=== PATIENT | female | born 1940 | race Caucasian/White ===

== ENCOUNTER 2017-04-06 14:17 | Inpatient (IN) | payer MEDICARE ==
[2017-04-06] MEDS ORDERED: Ondansetron ODT 4 MG TAB PO PRN (15:21)
[2017-04-06] MEDS ORDERED: FLU VACC TS2017-18 (>65YR) 0.5 ML SYRINGE IM ONE (16:30)
[2017-04-06] MEDS ORDERED: METHOCARBAMOL 500 MG PO PRN (17:00)
[2017-04-06] MEDS: Acetaminophen/Codeine 30-300mg Tablet PO PRN (17:37)
[2017-04-06] MEDS: Acetaminophen 325 MG TAB PO PRN (20:45)
[2017-04-06] MEDS: Ferrous Sulfate 325 MG TAB PO SCH (20:45)
[2017-04-06] MEDS: Docusate 100 MG CAP PO SCH (20:45)
[2017-04-06] MEDS: Simvastatin 40 MG TAB PO SCH (20:45)
[2017-04-06] MEDS: Cefuroxime Axetil 250 MG TAB PO SCH (20:46)
[2017-04-07] MEDS: Acetaminophen/Codeine 30-300mg Tablet PO PRN ×3 (04:46→19:56)
[2017-04-07] MEDS: Ferrous Sulfate 325 MG TAB PO SCH ×2 (08:45→20:18)
[2017-04-07] MEDS: Magnesium Oxide 400 MG TAB PO SCH (08:46)
[2017-04-07] MEDS: Docusate 100 MG CAP PO SCH ×2 (08:46→20:17)
[2017-04-07] MEDS: Enoxaparin Sodium 40 MG/0.4 ML SYRINGE SC SCH (08:46)
[2017-04-07] MEDS: Multivit, Therapeutic 1 TAB PO SCH (08:46)
[2017-04-07] MEDS: Ascorbic Acid 500 mg Chewable Tablet PO SCH (08:46)
[2017-04-07] MEDS: Levothyroxine Sodium 88 MCG TAB PO SCH (08:46)
[2017-04-07] MEDS: Cefuroxime Axetil 250 MG TAB PO SCH ×2 (08:47→20:19)
[2017-04-07] MEDS ORDERED: Non-Formulary Item 1 EACH (Citalopram Hydrobromide [Celexa] 40 MG) PO SCH (09:00)
[2017-04-07] MEDS ORDERED: GLYCOPYRROLATE 1 MG PO SCH (09:00)
[2017-04-07] MEDS: Citalopram 20 MG TAB PO SCH (09:18)
--- NOTE | 2017-04-07 15:06 | HP ---
DATE OF ADMISISON: 04/06/2017 ATTENDING: Dr. Dr. Ramirez. PRIMARY CARE PHYSICIAN: Dr. Catherine from [place]. Orthopedic, Dr. Tomlinson from [place]. CHIEF COMPLAINT: Skilled rehabilitation in [facility], [facility]. HISTORY OF PRESENT ILLNESS: Ms. Soriano is a very pleasant 76-year-old female, a chronic smoker with history of hypertension, hyperlipidemia , hypothyroidism, who while out of town, fell on a curb due to imbalance. She was found to have a right tibial fracture at the nearby emergency department and a splint was placed. She was then transferred to [facility] on 04/03/2017, and was seen by Dr. Tomlinson for orthopedic management of the right tibial fracture. The patient underwent intramedullary nailing of the right tibial shaft using a 10 x 315 mm Synthes, tibial nail with a 10 mm proximal end cap. One screw was placed medial to the lateral in the proximal dynamic hole and two screws were placed medial to the lateral in the distal holes in the distal fragment. Procedure was done by Dr. Rishi Tomlinson on 04/04/2017 at [facility] in [place], [place]. Patient 's postoperative course was unremarkable. Her latest hemoglobin was 11.6 on 11/2016 prior to discharge. She is currently on [place] for pain and with p.r.n. use of Robaxin for muscle relaxant. Patient reports adequately controlled pain with current pain management. She is using nicotine patch while in the hospital and is agreeable to continue using the patch while in the skilled rehabilitation. She is currently nonweightbearing per ortho recommendations. She is on Lovenox for DVT prophylaxis that we will continue for at least 2 weeks or further orders from the Orthopedics. She will follow up with Dr. Tomlinson on 04/17 at 12:45 in [facility]. When seen, patient was resting comfortably in bed. Family consisting of her son and her daughter, who were from out of the state visiting the patient. The patient reports that she stays at home by herself and might be needing home health when discharge if indicated. No other issues at this point except for irregular bowel movements and constipation lately. PAST MEDICAL HISTORY: Hypertension, hypothyroidism, hyperlipidemia, chronic smoker, depression, anxiety, and irritable bowel syndrome. PAST SURGICAL HISTORY: Right ankle surgery as per HPI and tubal ligation. ALLERGIES: To SULFA. MEDICATIONS: Acetaminophen with codeine #3 one tab p.o. q.4 hours p.r.n., citalopram 40 mg p.o. daily, Cefuroxime Axetil 500 mg p.o. b.i.d. for UTI to complete 4 more days, cholecalciferol 1000 mg p.o. daily, Docusate 100 mg p.o. b.i.d., Lovenox 40 mg subcu daily, ferrous sulfate 325 mg p.o. b.i.d., DuoNeb q. 2 hours p.r.n., levothyroxine 88 mcg p.o. q.a.m., magnesium oxide 400 mg p.o. daily, multivitamins 1 tab daily, nicotine patch 21 mg TD daily, pantoprazole 40 mg p.o. daily, simvastatin 40 mg p.o. at bedtime. FAMILY HISTORY: Positive for hypertension and heart disease. SOCIAL HISTORY: She smokes a pack of cigarettes per day for at least 40 years. She is a continuous smoker. She drinks 1-2 beers per day. No recreational drug use. She lives alone. She is independent in ADLs. REVIEW OF SYSTEMS: General: No fever, no chills, no fatigue or general weakness. HEENT: No acute visual changes or hearing changes. Respiratory: No shortness of breath, pain with breathing, sputum production, bloody sputum, or wheezing. Cardiac: No chest pain, no dyspnea on exertion, paroxysmal nocturnal dyspnea, or leg edema. Gastrointestinal: No nausea, vomiting, abdominal pain, diarrhea. Reports irregular bowel movements/constipation intermittently. No rectal bleeding. Genitourinary: No dysuria, hematuria, frequency, urgency. Currently on oral antibiotic for UTI. Musculoskeletal: Reports joint pain intermittently superimposed with postoperative pain, muscle and myalgia intermittently. Neurologic: No focal numbness, focal weakness, no tics, tremors or seizures. Psychiatric: Reports depressive symptoms/anxiety. No hallucinations. No suicidal thoughts, ideations or plans. PHYSICAL EXAMINATION: VITAL SIGNS: Blood pressure 141/63, temperature 98.1, pulse 71, respirations 20 , O2 sats 94% -97% at room air, weight 139 pounds, height 5 feet 3 inches. GENERAL: The patient is awake, alert, oriented x3, not in distress. HEENT: Normocephalic, atraumatic. PERRL, intact EOMI. Nonicteric sclera. Oral mucosa is moist. NECK: Supple. No LAD, no JVD, no bruit. CHEST: Normal excursion, clear to auscultation bilaterally. HEART: Regular rate and rhythm. Normal S1 and S2. No murmurs. ABDOMEN: Flat, soft, normoactive bowel sounds, nondistended, nontender. Negative CVA tenderness bilaterally. EXTREMITIES: Right lower extremity is mildly swollen and edematous in color. Multiple postop wounds both on the right lower ankle and below the right knee were noted. Palpable pulses bilaterally. She is able to move all the toes and fingers without difficulty. SKIN: As described postoperatively. Otherwise, no other rashes, no jaundice. A small open wound at posterior of the right knee, moist with minimal yellowish discharge, no surrounding erythema, no surrounding edema. Not warm to touch. NEUROLOGIC: Alert and oriented x3, no focal deficits. DTRs 2+. Gait abnormal secondary to postoperative condition. ASSESSMENT: 1. Physical deconditioning. 2. Right tibial fracture secondary to ground level fall, status post intramedullary nailing of the right tibial shaft, 04/04/2017, by Dr. Rishi Tomlinson. 3. Occasional myalgia. 4. Gait abnormality secondary to nonweightbearing status. 5. Small open wound , right posterior tibia. SECONDARY DIAGNOSES: 1. Hypertension. 2. Hyperlipidemia. 3. Hypothyroidism. 4. Depression and anxiety. 5. Chronic tobacco use. PLAN: 1. The patient is admitted to [facility] bed for skilled rehabilitation. PT, OT were consulted. Patient will remain nonweightbearing until further recommendations from ortho. We will continue home medications/ transfer medications as modified per list. We will add MiraLax as part of the constipation regimen. The patient to follow up with Ortho on 04/17/[address] Tomlinson in [place] as previously scheduled. [facility] staff to arrange transportation for this outpatient followup. 2. Gastrointestinal prophylaxis with PPI. Deep venous thrombosis prophylaxis with Lovenox. 3. Routine wound care per nursing. 4. Estimated length of stay 3-4 weeks. CODE STATUS: The patient reports DNR in the presence of her son and daughter who was present at the time of examination. Children concur with the patient's wishes. DISPOSITION: Home, may need possible home health and personal provider while recuperating. Discussed the above plans of care with the patient and the family. All their questions were answered to their satisfaction. BLU
[2017-04-07] MEDS: Nicotine 21 MG PATCH TD SCH (17:22)
[2017-04-07] MEDS: Cyclobenzaprine 10 MG TAB PO PRN (17:26)
[2017-04-07] MEDS: Polyethylene Glycol 3350 17 GM Packet PER TUBE SCH (20:17)
[2017-04-07] MEDS: Simvastatin 40 MG TAB PO SCH (20:22)
[2017-04-08] MEDS: Levothyroxine Sodium 88 MCG TAB PO SCH (07:42)
[2017-04-08] MEDS: Ascorbic Acid 500 mg Chewable Tablet PO SCH (08:32)
[2017-04-08] MEDS: Docusate 100 MG CAP PO SCH ×2 (08:33→20:22)
[2017-04-08] MEDS: Ferrous Sulfate 325 MG TAB PO SCH ×2 (08:33→20:22)
[2017-04-08] MEDS: Multivit, Therapeutic 1 TAB PO SCH (08:33)
[2017-04-08] MEDS: Citalopram 20 MG TAB PO SCH (08:33)
[2017-04-08] MEDS: Enoxaparin Sodium 40 MG/0.4 ML SYRINGE SC SCH (08:33)
[2017-04-08] MEDS: Magnesium Oxide 400 MG TAB PO SCH (08:33)
[2017-04-08] MEDS: Acetaminophen/Codeine 30-300mg Tablet PO PRN ×2 (08:34→20:22)
[2017-04-08] MEDS: Cefuroxime Axetil 250 MG TAB PO SCH ×2 (08:35→20:22)
[2017-04-08] MEDS: Nicotine 21 MG PATCH TD SCH (16:39)
[2017-04-08] MEDS: Acetaminophen 325 MG TAB PO PRN (16:39)
[2017-04-08] MEDS: Polyethylene Glycol 3350 17 GM Packet PER TUBE SCH (20:21)
[2017-04-08] MEDS: Simvastatin 40 MG TAB PO SCH (20:22)
[2017-04-09] MEDS: Levothyroxine Sodium 88 MCG TAB PO SCH (05:55)
[2017-04-09] MEDS: Acetaminophen 325 MG TAB PO PRN ×2 (05:58→14:01)
[2017-04-09] MEDS: Cyclobenzaprine 10 MG TAB PO PRN ×3 (05:58→20:19)
[2017-04-09] MEDS: Enoxaparin Sodium 40 MG/0.4 ML SYRINGE SC SCH (08:36)
[2017-04-09] MEDS: Docusate 100 MG CAP PO SCH ×2 (08:37→20:20)
[2017-04-09] MEDS: Acetaminophen/Codeine 30-300mg Tablet PO PRN ×2 (08:37→20:20)
[2017-04-09] MEDS: Multivit, Therapeutic 1 TAB PO SCH (08:37)
[2017-04-09] MEDS: Citalopram 20 MG TAB PO SCH (08:38)
[2017-04-09] MEDS: Cefuroxime Axetil 250 MG TAB PO SCH ×2 (08:38→20:19)
[2017-04-09] MEDS: Ascorbic Acid 500 mg Chewable Tablet PO SCH (08:38)
[2017-04-09] MEDS: Ferrous Sulfate 325 MG TAB PO SCH ×2 (08:39→20:20)
[2017-04-09] MEDS: Magnesium Oxide 400 MG TAB PO SCH (08:39)
[2017-04-09] MEDS: Nicotine 21 MG PATCH TD SCH (17:25)
[2017-04-09] MEDS: Simvastatin 40 MG TAB PO SCH (20:20)
[2017-04-09] MEDS: Polyethylene Glycol 3350 17 GM Packet PER TUBE SCH (20:20)
[2017-04-10] MEDS: Levothyroxine Sodium 88 MCG TAB PO SCH (06:12)
[2017-04-10] MEDS: Citalopram 20 MG TAB PO SCH (09:02)
[2017-04-10] MEDS: Ascorbic Acid 500 mg Chewable Tablet PO SCH (09:02)
[2017-04-10] MEDS: Cefuroxime Axetil 250 MG TAB PO SCH ×2 (09:02→20:24)
[2017-04-10] MEDS: Multivit, Therapeutic 1 TAB PO SCH (09:03)
[2017-04-10] MEDS: Ferrous Sulfate 325 MG TAB PO SCH ×2 (09:03→20:23)
[2017-04-10] MEDS: Magnesium Oxide 400 MG TAB PO SCH (09:03)
[2017-04-10] MEDS: Enoxaparin Sodium 40 MG/0.4 ML SYRINGE SC SCH (09:03)
[2017-04-10] MEDS: Docusate 100 MG CAP PO SCH ×2 (09:03→20:24)
[2017-04-10] MEDS: Acetaminophen/Codeine 30-300mg Tablet PO PRN ×2 (09:09→20:24)
[2017-04-10] MEDS: Nicotine 21 MG PATCH TD SCH (16:59)
[2017-04-10] MEDS: Cyclobenzaprine 10 MG TAB PO PRN (20:24)
[2017-04-10] MEDS: Simvastatin 40 MG TAB PO SCH (20:24)
[2017-04-10] MEDS: Polyethylene Glycol 3350 17 GM Packet PER TUBE SCH (20:24)
[2017-04-11] MEDS: Levothyroxine Sodium 88 MCG TAB PO SCH (05:58)
[2017-04-11] MEDS: Acetaminophen 325 MG TAB PO PRN (06:03)
[2017-04-11] MEDS: Cyclobenzaprine 10 MG TAB PO PRN ×2 (06:03→20:40)
[2017-04-11] MEDS: Ascorbic Acid 500 mg Chewable Tablet PO SCH (08:34)
[2017-04-11] MEDS: Enoxaparin Sodium 40 MG/0.4 ML SYRINGE SC SCH (08:34)
[2017-04-11] MEDS: Magnesium Oxide 400 MG TAB PO SCH (08:35)
[2017-04-11] MEDS: Citalopram 20 MG TAB PO SCH (08:35)
[2017-04-11] MEDS: Multivit, Therapeutic 1 TAB PO SCH (08:35)
[2017-04-11] MEDS: Ferrous Sulfate 325 MG TAB PO SCH ×2 (08:35→20:42)
[2017-04-11] MEDS: Docusate 100 MG CAP PO SCH ×2 (08:35→20:41)
[2017-04-11] MEDS: Acetaminophen/Codeine 30-300mg Tablet PO PRN ×2 (08:39→20:40)
[2017-04-11] MEDS: Nicotine 21 MG PATCH TD SCH (17:29)
[2017-04-11] MEDS: Polyethylene Glycol 3350 17 GM Packet PER TUBE SCH (20:43)
[2017-04-11] MEDS: Simvastatin 40 MG TAB PO SCH (20:43)
[2017-04-12] MEDS: Acetaminophen/Codeine 30-300mg Tablet PO PRN ×2 (04:58→20:42)
[2017-04-12] MEDS: Levothyroxine Sodium 88 MCG TAB PO SCH (05:03)
[2017-04-12] MEDS: Ascorbic Acid 500 mg Chewable Tablet PO SCH (09:15)
[2017-04-12] MEDS: Magnesium Oxide 400 MG TAB PO SCH (09:16)
[2017-04-12] MEDS: Ferrous Sulfate 325 MG TAB PO SCH ×2 (09:16→20:42)
[2017-04-12] MEDS: Multivit, Therapeutic 1 TAB PO SCH (09:16)
[2017-04-12] MEDS: Docusate 100 MG CAP PO SCH ×2 (09:16→20:42)
[2017-04-12] MEDS: Enoxaparin Sodium 40 MG/0.4 ML SYRINGE SC SCH (09:16)
[2017-04-12] MEDS: Citalopram 20 MG TAB PO SCH (09:16)
[2017-04-12] MEDS: Cyclobenzaprine 10 MG TAB PO PRN (16:45)
[2017-04-12] MEDS: Nicotine 21 MG PATCH TD SCH (17:07)
[2017-04-12] MEDS: Polyethylene Glycol 3350 17 GM Packet PER TUBE SCH (20:41)
[2017-04-12] MEDS: Simvastatin 40 MG TAB PO SCH (20:42)
[2017-04-13] MEDS: Levothyroxine Sodium 88 MCG TAB PO SCH (05:24)
[2017-04-13] MEDS: Enoxaparin Sodium 40 MG/0.4 ML SYRINGE SC SCH (09:19)
[2017-04-13] MEDS: Citalopram 20 MG TAB PO SCH (09:20)
[2017-04-13] MEDS: Magnesium Oxide 400 MG TAB PO SCH (09:21)
[2017-04-13] MEDS: Ascorbic Acid 500 mg Chewable Tablet PO SCH (09:21)
[2017-04-13] MEDS: Multivit, Therapeutic 1 TAB PO SCH (09:21)
[2017-04-13] MEDS: Docusate 100 MG CAP PO SCH ×2 (09:21→20:35)
[2017-04-13] MEDS: Ferrous Sulfate 325 MG TAB PO SCH ×2 (09:22→20:36)
[2017-04-13] MEDS: Acetaminophen/Codeine 30-300mg Tablet PO PRN ×2 (09:43→20:35)
[2017-04-13] MEDS: Cyclobenzaprine 10 MG TAB PO PRN ×2 (13:48→20:35)
[2017-04-13] MEDS ORDERED: Bisacodyl 10 MG SUPP PR PRN (17:16)
[2017-04-13] MEDS: Nicotine 21 MG PATCH TD SCH (17:23)
[2017-04-13] MEDS ORDERED: Fleet Enema 133 ML BOT PR SCH (17:30)
[2017-04-13] MEDS: Polyethylene Glycol 3350 17 GM Packet PER TUBE SCH (20:35)
[2017-04-13] MEDS: Simvastatin 40 MG TAB PO SCH (21:00)
[2017-04-14] MEDS: Acetaminophen/Codeine 30-300mg Tablet PO PRN ×2 (04:07→20:49)
[2017-04-14] MEDS: Levothyroxine Sodium 88 MCG TAB PO SCH (05:07)
[2017-04-14] MEDS: Magnesium Oxide 400 MG TAB PO SCH (08:33)
[2017-04-14] MEDS: Ferrous Sulfate 325 MG TAB PO SCH ×2 (08:33→20:51)
[2017-04-14] MEDS: Citalopram 20 MG TAB PO SCH (08:34)
[2017-04-14] MEDS: Enoxaparin Sodium 40 MG/0.4 ML SYRINGE SC SCH (08:34)
[2017-04-14] MEDS: Multivit, Therapeutic 1 TAB PO SCH (08:34)
[2017-04-14] MEDS: Docusate 100 MG CAP PO SCH ×2 (08:34→20:51)
[2017-04-14] MEDS: Ascorbic Acid 500 mg Chewable Tablet PO SCH (08:34)
[2017-04-14] MEDS: Polyethylene Glycol 3350 17 GM Packet PO PRN (08:38)
[2017-04-14] MEDS: Nicotine 21 MG PATCH TD SCH (17:26)
[2017-04-14] MEDS: Polyethylene Glycol 3350 17 GM Packet PER TUBE SCH (20:49)
[2017-04-14] MEDS: Simvastatin 40 MG TAB PO SCH (20:51)
[2017-04-15] MEDS: Acetaminophen/Codeine 30-300mg Tablet PO PRN ×3 (03:31→21:46)
[2017-04-15] MEDS: Cyclobenzaprine 10 MG TAB PO PRN (03:32)
[2017-04-15] MEDS: Levothyroxine Sodium 88 MCG TAB PO SCH (06:04)
[2017-04-15] MEDS: Ascorbic Acid 500 mg Chewable Tablet PO SCH (08:43)
[2017-04-15] MEDS: Citalopram 20 MG TAB PO SCH (08:43)
[2017-04-15] MEDS: Ferrous Sulfate 325 MG TAB PO SCH ×2 (08:43→20:37)
[2017-04-15] MEDS: Magnesium Oxide 400 MG TAB PO SCH (08:43)
[2017-04-15] MEDS: Multivit, Therapeutic 1 TAB PO SCH (08:43)
[2017-04-15] MEDS: Docusate 100 MG CAP PO SCH ×2 (08:43→20:37)
[2017-04-15] MEDS: Enoxaparin Sodium 40 MG/0.4 ML SYRINGE SC SCH (08:43)
[2017-04-15] MEDS: Polyethylene Glycol 3350 17 GM Packet PO PRN (08:46)
[2017-04-15] MEDS: Nicotine 21 MG PATCH TD SCH (17:38)
[2017-04-15] MEDS: Simvastatin 40 MG TAB PO SCH (20:37)
[2017-04-15] MEDS: Polyethylene Glycol 3350 17 GM Packet PER TUBE SCH (20:39)
[2017-04-16] MEDS: Levothyroxine Sodium 88 MCG TAB PO SCH (05:59)
[2017-04-16] MEDS: Cyclobenzaprine 10 MG TAB PO PRN (05:59)
[2017-04-16] MEDS: Enoxaparin Sodium 40 MG/0.4 ML SYRINGE SC SCH (09:18)
[2017-04-16] MEDS: Multivit, Therapeutic 1 TAB PO SCH (09:18)
[2017-04-16] MEDS: Ferrous Sulfate 325 MG TAB PO SCH ×2 (09:19→22:05)
[2017-04-16] MEDS: Magnesium Oxide 400 MG TAB PO SCH (09:19)
[2017-04-16] MEDS: Ascorbic Acid 500 mg Chewable Tablet PO SCH (09:20)
[2017-04-16] MEDS: Citalopram 20 MG TAB PO SCH (09:20)
[2017-04-16] MEDS: Docusate 100 MG CAP PO SCH ×2 (09:20→22:01)
[2017-04-16] MEDS: Acetaminophen/Codeine 30-300mg Tablet PO PRN ×2 (09:23→22:02)
[2017-04-16] MEDS: Polyethylene Glycol 3350 17 GM Packet PO PRN (09:26)
[2017-04-16] MEDS: Nicotine 21 MG PATCH TD SCH (16:20)
[2017-04-16] MEDS: Simvastatin 40 MG TAB PO SCH (22:04)
[2017-04-16] MEDS: Polyethylene Glycol 3350 17 GM Packet PER TUBE SCH (22:05)
[2017-04-17] MEDS: Levothyroxine Sodium 88 MCG TAB PO SCH (05:31)
[2017-04-17] MEDS: Citalopram 20 MG TAB PO SCH (08:25)
[2017-04-17] MEDS: Enoxaparin Sodium 40 MG/0.4 ML SYRINGE SC SCH (08:25)
[2017-04-17] MEDS: Docusate 100 MG CAP PO SCH ×2 (08:25→20:20)
[2017-04-17] MEDS: Ascorbic Acid 500 mg Chewable Tablet PO SCH (08:25)
[2017-04-17] MEDS: Multivit, Therapeutic 1 TAB PO SCH (08:26)
[2017-04-17] MEDS: Magnesium Oxide 400 MG TAB PO SCH (08:26)
[2017-04-17] MEDS: Ferrous Sulfate 325 MG TAB PO SCH ×2 (08:26→20:20)
[2017-04-17] MEDS: Acetaminophen/Codeine 30-300mg Tablet PO PRN ×2 (10:30→20:21)
[2017-04-17] MEDS: Nicotine 21 MG PATCH TD SCH (17:46)
[2017-04-17] MEDS: Simvastatin 40 MG TAB PO SCH (20:21)
[2017-04-17] MEDS: Cyclobenzaprine 10 MG TAB PO PRN (20:21)
[2017-04-17] MEDS: Polyethylene Glycol 3350 17 GM Packet PER TUBE SCH (20:22)
[2017-04-18] MEDS: Levothyroxine Sodium 88 MCG TAB PO SCH (05:40)
[2017-04-18] MEDS: Ascorbic Acid 500 mg Chewable Tablet PO SCH (08:43)
[2017-04-18] MEDS: Docusate 100 MG CAP PO SCH ×2 (08:43→20:39)
[2017-04-18] MEDS: Ferrous Sulfate 325 MG TAB PO SCH ×2 (08:43→20:37)
[2017-04-18] MEDS: Citalopram 20 MG TAB PO SCH (08:43)
[2017-04-18] MEDS: Multivit, Therapeutic 1 TAB PO SCH (08:43)
[2017-04-18] MEDS: Magnesium Oxide 400 MG TAB PO SCH (08:44)
[2017-04-18] MEDS: Enoxaparin Sodium 40 MG/0.4 ML SYRINGE SC SCH (08:44)
[2017-04-18] MEDS: Nicotine 21 MG PATCH TD SCH (17:08)
[2017-04-18] MEDS: Cyclobenzaprine 10 MG TAB PO PRN (20:37)
[2017-04-18] MEDS: Simvastatin 40 MG TAB PO SCH (20:37)
[2017-04-18] MEDS: Acetaminophen/Codeine 30-300mg Tablet PO PRN (20:37)
[2017-04-18] MEDS: Polyethylene Glycol 3350 17 GM Packet PER TUBE SCH (20:39)
[2017-04-19] MEDS: Levothyroxine Sodium 88 MCG TAB PO SCH (05:55)
[2017-04-19] MEDS: Magnesium Oxide 400 MG TAB PO SCH (08:53)
[2017-04-19] MEDS: Docusate 100 MG CAP PO SCH ×2 (08:53→20:54)
[2017-04-19] MEDS: Citalopram 20 MG TAB PO SCH (08:53)
[2017-04-19] MEDS: Ascorbic Acid 500 mg Chewable Tablet PO SCH (08:53)
[2017-04-19] MEDS: Multivit, Therapeutic 1 TAB PO SCH (08:53)
[2017-04-19] MEDS: Ferrous Sulfate 325 MG TAB PO SCH ×2 (08:53→20:51)
[2017-04-19] MEDS: Enoxaparin Sodium 40 MG/0.4 ML SYRINGE SC SCH (08:54)
[2017-04-19] MEDS: Nicotine 21 MG PATCH TD SCH ×2 (17:41→20:53)
[2017-04-19] MEDS: Simvastatin 40 MG TAB PO SCH (20:51)
[2017-04-19] MEDS: Cyclobenzaprine 10 MG TAB PO PRN (20:52)
[2017-04-19] MEDS: Acetaminophen/Codeine 30-300mg Tablet PO PRN (20:52)
[2017-04-19] MEDS: Polyethylene Glycol 3350 17 GM Packet PER TUBE SCH (20:54)
[2017-04-20] MEDS: Levothyroxine Sodium 88 MCG TAB PO SCH (05:52)
[2017-04-20] MEDS: Ascorbic Acid 500 mg Chewable Tablet PO SCH (08:41)
[2017-04-20] MEDS: Multivit, Therapeutic 1 TAB PO SCH (08:41)
[2017-04-20] MEDS: Docusate 100 MG CAP PO SCH ×2 (08:41→21:22)
[2017-04-20] MEDS: Citalopram 20 MG TAB PO SCH (08:41)
[2017-04-20] MEDS: Enoxaparin Sodium 40 MG/0.4 ML SYRINGE SC SCH (08:41)
[2017-04-20] MEDS: Magnesium Oxide 400 MG TAB PO SCH (08:41)
[2017-04-20] MEDS: Ferrous Sulfate 325 MG TAB PO SCH ×2 (08:43→21:22)
[2017-04-20] MEDS: Nicotine 21 MG PATCH TD SCH ×2 (17:10→21:21)
[2017-04-20] MEDS: Acetaminophen/Codeine 30-300mg Tablet PO PRN (21:21)
[2017-04-20] MEDS: Polyethylene Glycol 3350 17 GM Packet PER TUBE SCH (21:22)
[2017-04-20] MEDS: Simvastatin 40 MG TAB PO SCH (21:22)
[2017-04-21] MEDS: Levothyroxine Sodium 88 MCG TAB PO SCH (06:05)
[2017-04-21] MEDS: Ascorbic Acid 500 mg Chewable Tablet PO SCH (08:40)
[2017-04-21] MEDS: Docusate 100 MG CAP PO SCH ×2 (08:41→21:41)
[2017-04-21] MEDS: Enoxaparin Sodium 40 MG/0.4 ML SYRINGE SC SCH (08:41)
[2017-04-21] MEDS: Citalopram 20 MG TAB PO SCH (08:41)
[2017-04-21] MEDS: Ferrous Sulfate 325 MG TAB PO SCH ×2 (08:42→21:42)
[2017-04-21] MEDS: Multivit, Therapeutic 1 TAB PO SCH (08:42)
[2017-04-21] MEDS: Magnesium Oxide 400 MG TAB PO SCH (08:42)
[2017-04-21] MEDS: Acetaminophen/Codeine 30-300mg Tablet PO PRN ×2 (08:48→21:44)
[2017-04-21] MEDS: Nicotine 21 MG PATCH TD SCH ×2 (17:18→21:49)
[2017-04-21] MEDS: Polyethylene Glycol 3350 17 GM Packet PER TUBE SCH (21:42)
[2017-04-21] MEDS: Simvastatin 40 MG TAB PO SCH (21:42)
[2017-04-22] MEDS: Levothyroxine Sodium 88 MCG TAB PO SCH (05:11)
[2017-04-22] MEDS: Ascorbic Acid 500 mg Chewable Tablet PO SCH (08:46)
[2017-04-22] MEDS: Enoxaparin Sodium 40 MG/0.4 ML SYRINGE SC SCH (08:47)
[2017-04-22] MEDS: Ferrous Sulfate 325 MG TAB PO SCH ×2 (08:47→20:27)
[2017-04-22] MEDS: Citalopram 20 MG TAB PO SCH (08:47)
[2017-04-22] MEDS: Docusate 100 MG CAP PO SCH ×2 (08:47→20:29)
[2017-04-22] MEDS: Multivit, Therapeutic 1 TAB PO SCH (08:48)
[2017-04-22] MEDS: Magnesium Oxide 400 MG TAB PO SCH (08:48)
[2017-04-22] MEDS: Nicotine 21 MG PATCH TD SCH (17:02)
[2017-04-22] MEDS: Simvastatin 40 MG TAB PO SCH (20:27)
[2017-04-22] MEDS: Acetaminophen/Codeine 30-300mg Tablet PO PRN (20:28)
[2017-04-22] MEDS: Cyclobenzaprine 10 MG TAB PO PRN (20:28)
[2017-04-22] MEDS: Polyethylene Glycol 3350 17 GM Packet PER TUBE SCH (20:29)
[2017-04-23] MEDS: Levothyroxine Sodium 88 MCG TAB PO SCH (05:18)
[2017-04-23] MEDS: Ascorbic Acid 500 mg Chewable Tablet PO SCH (09:13)
[2017-04-23] MEDS: Enoxaparin Sodium 40 MG/0.4 ML SYRINGE SC SCH (09:14)
[2017-04-23] MEDS: Docusate 100 MG CAP PO SCH ×2 (09:14→20:42)
[2017-04-23] MEDS: Citalopram 20 MG TAB PO SCH (09:14)
[2017-04-23] MEDS: Ferrous Sulfate 325 MG TAB PO SCH ×2 (09:15→20:41)
[2017-04-23] MEDS: Multivit, Therapeutic 1 TAB PO SCH (09:15)
[2017-04-23] MEDS: Magnesium Oxide 400 MG TAB PO SCH (09:15)
[2017-04-23] MEDS: Acetaminophen 325 MG TAB PO PRN (14:00)
[2017-04-23] MEDS: Nicotine 21 MG PATCH TD SCH (17:42)
[2017-04-23] MEDS: Simvastatin 40 MG TAB PO SCH (20:41)
[2017-04-23] MEDS: Cyclobenzaprine 10 MG TAB PO PRN (20:41)
[2017-04-23] MEDS: Polyethylene Glycol 3350 17 GM Packet PER TUBE SCH (20:42)
[2017-04-24] MEDS: Acetaminophen/Codeine 30-300mg Tablet PO PRN ×2 (02:27→20:29)
[2017-04-24] MEDS: Levothyroxine Sodium 88 MCG TAB PO SCH (05:24)
[2017-04-24] MEDS: Citalopram 20 MG TAB PO SCH (09:47)
[2017-04-24] MEDS: Ascorbic Acid 500 mg Chewable Tablet PO SCH (09:47)
[2017-04-24] MEDS: Magnesium Oxide 400 MG TAB PO SCH (09:47)
[2017-04-24] MEDS: Docusate 100 MG CAP PO SCH ×2 (09:47→20:31)
[2017-04-24] MEDS: Multivit, Therapeutic 1 TAB PO SCH (09:47)
[2017-04-24] MEDS: Ferrous Sulfate 325 MG TAB PO SCH ×2 (09:47→20:29)
[2017-04-24] MEDS: Nicotine 21 MG PATCH TD SCH (17:10)
[2017-04-24] MEDS: Cyclobenzaprine 10 MG TAB PO PRN (20:29)
[2017-04-24] MEDS: Simvastatin 40 MG TAB PO SCH (20:29)
[2017-04-24] MEDS: Polyethylene Glycol 3350 17 GM Packet PER TUBE SCH (20:30)
[2017-04-25] MEDS: Levothyroxine Sodium 88 MCG TAB PO SCH (05:59)
[2017-04-25] MEDS: Citalopram 20 MG TAB PO SCH (08:59)
[2017-04-25] MEDS: Docusate 100 MG CAP PO SCH ×2 (09:00→19:55)
[2017-04-25] MEDS: Ascorbic Acid 500 mg Chewable Tablet PO SCH (09:00)
[2017-04-25] MEDS: Ferrous Sulfate 325 MG TAB PO SCH ×2 (09:00→19:56)
[2017-04-25] MEDS: Magnesium Oxide 400 MG TAB PO SCH (09:00)
[2017-04-25] MEDS: Multivit, Therapeutic 1 TAB PO SCH (09:00)
[2017-04-25] MEDS: Acetaminophen/Codeine 30-300mg Tablet PO PRN ×3 (09:04→20:51)
[2017-04-25] MEDS: Nicotine 21 MG PATCH TD SCH (16:22)
[2017-04-25] MEDS: Simvastatin 40 MG TAB PO SCH (19:55)
[2017-04-25] MEDS: Polyethylene Glycol 3350 17 GM Packet PER TUBE SCH (19:56)
[2017-04-26] MEDS: Levothyroxine Sodium 88 MCG TAB PO SCH (05:54)
[2017-04-26] MEDS: Magnesium Oxide 400 MG TAB PO SCH (09:56)
[2017-04-26] MEDS: Multivit, Therapeutic 1 TAB PO SCH (09:56)
[2017-04-26] MEDS: Docusate 100 MG CAP PO SCH ×2 (09:56→21:00)
[2017-04-26] MEDS: Ascorbic Acid 500 mg Chewable Tablet PO SCH (09:56)
[2017-04-26] MEDS: Ferrous Sulfate 325 MG TAB PO SCH ×2 (09:56→21:01)
[2017-04-26] MEDS: Citalopram 20 MG TAB PO SCH (09:56)
[2017-04-26] MEDS: Nicotine 21 MG PATCH TD SCH (17:19)
[2017-04-26] MEDS: Acetaminophen/Codeine 30-300mg Tablet PO PRN (19:37)
[2017-04-26] MEDS: Simvastatin 40 MG TAB PO SCH (21:00)
[2017-04-26] MEDS: Polyethylene Glycol 3350 17 GM Packet PER TUBE SCH (21:04)
[2017-04-27] MEDS: Levothyroxine Sodium 88 MCG TAB PO SCH (05:38)
[2017-04-27] MEDS: Docusate 100 MG CAP PO SCH ×2 (08:58→20:02)
[2017-04-27] MEDS: Ascorbic Acid 500 mg Chewable Tablet PO SCH (08:58)
[2017-04-27] MEDS: Multivit, Therapeutic 1 TAB PO SCH (08:59)
[2017-04-27] MEDS: Ferrous Sulfate 325 MG TAB PO SCH ×2 (08:59→20:02)
[2017-04-27] MEDS: Magnesium Oxide 400 MG TAB PO SCH (09:00)
[2017-04-27] MEDS: Citalopram 20 MG TAB PO SCH (09:17)
[2017-04-27] MEDS: Acetaminophen/Codeine 30-300mg Tablet PO PRN ×2 (13:56→20:01)
[2017-04-27] MEDS: Nicotine 21 MG PATCH TD SCH (17:18)
[2017-04-27] MEDS: Simvastatin 40 MG TAB PO SCH (20:02)
[2017-04-27] MEDS: Polyethylene Glycol 3350 17 GM Packet PER TUBE SCH (20:03)
[2017-04-28] MEDS: Levothyroxine Sodium 88 MCG TAB PO SCH (05:22)
[2017-04-28] MEDS: Docusate 100 MG CAP PO SCH ×2 (08:53→20:12)
[2017-04-28] MEDS: Ferrous Sulfate 325 MG TAB PO SCH ×2 (08:54→20:12)
[2017-04-28] MEDS: Citalopram 20 MG TAB PO SCH (08:54)
[2017-04-28] MEDS: Magnesium Oxide 400 MG TAB PO SCH (08:54)
[2017-04-28] MEDS: Multivit, Therapeutic 1 TAB PO SCH (08:54)
[2017-04-28] MEDS: Ascorbic Acid 500 mg Chewable Tablet PO SCH (08:54)
[2017-04-28] MEDS: Acetaminophen 325 MG TAB PO PRN (15:23)
[2017-04-28] MEDS: Nicotine 21 MG PATCH TD SCH (17:12)
[2017-04-28] MEDS: Acetaminophen/Codeine 30-300mg Tablet PO PRN (20:12)
[2017-04-28] MEDS: Simvastatin 40 MG TAB PO SCH (20:12)
[2017-04-28] MEDS: Polyethylene Glycol 3350 17 GM Packet PER TUBE SCH (20:14)
[2017-04-29] MEDS: Levothyroxine Sodium 88 MCG TAB PO SCH (05:41)
[2017-04-29] MEDS: Docusate 100 MG CAP PO SCH ×2 (10:11→20:34)
[2017-04-29] MEDS: Ferrous Sulfate 325 MG TAB PO SCH ×2 (10:11→20:34)
[2017-04-29] MEDS: Ascorbic Acid 500 mg Chewable Tablet PO SCH (10:12)
[2017-04-29] MEDS: Citalopram 20 MG TAB PO SCH (10:12)
[2017-04-29] MEDS: Magnesium Oxide 400 MG TAB PO SCH (10:12)
[2017-04-29] MEDS: Multivit, Therapeutic 1 TAB PO SCH (10:12)
[2017-04-29] MEDS ORDERED: Sodium Chloride Irrig Solution 250 ML BOT ONE (10:21)
[2017-04-29] MEDS: Nicotine 21 MG PATCH TD SCH (17:53)
[2017-04-29] MEDS: Polyethylene Glycol 3350 17 GM Packet PER TUBE SCH (20:34)
[2017-04-29] MEDS: Simvastatin 40 MG TAB PO SCH (20:34)
[2017-04-30] MEDS: Levothyroxine Sodium 88 MCG TAB PO SCH (06:14)
[2017-04-30] MEDS: Ascorbic Acid 500 mg Chewable Tablet PO SCH (08:06)
[2017-04-30] MEDS: Docusate 100 MG CAP PO SCH ×2 (08:07→20:43)
[2017-04-30] MEDS: Multivit, Therapeutic 1 TAB PO SCH (08:07)
[2017-04-30] MEDS: Magnesium Oxide 400 MG TAB PO SCH (08:07)
[2017-04-30] MEDS: Ferrous Sulfate 325 MG TAB PO SCH ×2 (08:07→20:43)
[2017-04-30] MEDS: Citalopram 20 MG TAB PO SCH (08:08)
[2017-04-30] MEDS: Acetaminophen 325 MG TAB PO PRN (12:46)
[2017-04-30] MEDS: Nicotine 21 MG PATCH TD SCH (17:22)
[2017-04-30] MEDS: Simvastatin 40 MG TAB PO SCH (20:42)
[2017-04-30] MEDS: Polyethylene Glycol 3350 17 GM Packet PER TUBE SCH (20:44)
[2017-04-30 20:48] VITALS: BMI 23.9
[2017-05-01] MEDS: Levothyroxine Sodium 88 MCG TAB PO SCH (05:14)
[2017-05-01] MEDS: Citalopram 20 MG TAB PO SCH (08:44)
[2017-05-01] MEDS: Ferrous Sulfate 325 MG TAB PO SCH (08:45)
[2017-05-01] MEDS: Multivit, Therapeutic 1 TAB PO SCH (08:45)
[2017-05-01] MEDS: Docusate 100 MG CAP PO SCH (08:45)
[2017-05-01] MEDS: Ascorbic Acid 500 mg Chewable Tablet PO SCH (08:45)
[2017-05-01] MEDS: Magnesium Oxide 400 MG TAB PO SCH (08:45)
[2017-05-01] MEDS: Acetaminophen 325 MG TAB PO PRN (09:36)
[2017-05-01 09:37] VITALS: BP 167/77; TEMP 97.9
--- NOTE | 2017-05-02 21:39 | DIS ---
DATE OF ADMISSION: 04/06/2017 DATE OF DISCHARGE: 05/01/2017 ATTENDING: Vivian Ramirez M.D. PRIMARY CARE PHYSICIAN: Dr. Catherine from [place]. ORTHOPEDIC DOCTOR: Dr. Tomlinson from [place]. CHIEF COMPLAINT: Skilled rehabilitation in [facility]. ASSESSMENT: 1. Physical deconditioning. 2. Right tibial fracture secondary to ground level fall, status post intramedullary nailing of the r ight tibial shaft on 04/04/[address] Rishi Tomlinson. 3. Gait abnormality secondary to #2. 4. Small open wound right posterior tibial, resolved. SECONDARY DIAGNOSES: Hypertension, hyperlipidemia, hypothyroidism, depression, anxiety, and chronic tobacco use. CONDITION ON DISCHARGE: Stable. DISPOSTION: Home. MEDICATIONS: 1. Acetaminophen with codeine #3 one tablet q.6 hours p.r.n. 2. Citalopram 40 mg p.o. daily. 3. Cholecalciferol 1000 mg p.o. daily. 4. Docusate 100 mg p.o. b.i.d. 5. Levothyroxine 88 mcg p.o. q.a.m. 6. Magnesium oxide 400 mg p.o. daily. 7. Multivitamins 1 tab daily. 8. Nicotine patch 21 mg TD daily. 9. Pantoprazole 40 mg p.o. daily. 10. Simvastatin 40 mg p.o. at bedtime. 11. MiraLax 17 grams p.o. at bedtime p.r.n. 12. Bisacodyl 10 mg p.o. b.i.d. p.r.n. DISCHARGE INSTRUCTIONS: 1. DIET: Regular as tolerated. 2. Activity: Toe touch weightbearing status using a rolling walker. 3. Fall precautions. 4. Follow up with Dr. Tomlinson in 1 week or as previously scheduled. 5. Follow up with PCP in 2 weeks or sooner if with concerns. HISTORY OF PRESENT ILLNESS AND HOSPITAL COURSE: Ms. Soriano is a very pleasant 76-year-old female with history of hypertension, hyperlipidemia, hypothyroidism, and chronic smoker. She was fou nd to have a right tibial fracture on 04/03/2017 after she had a ground level fall. She underwent in tramedullary nailing of the right atrial shaft on 04/04/[address] Tomlinson at [facility]. T he patient had an uncomplicated postoperative course. Jerome were removed by Dr. Tomlinson couple day s after. She was initially nonweightbearing post-transfer to [facility]. Two weeks afte r she was seen by Dr. Tomlinson, she was allowed to toe touch weightbearing status. The patient did we ll in rehabilitation. She was walking 150 to 200 feet using a rolling walker prior to discharge. Ov antonio, postoperative course was unremarkable. She was discharged home on 05/01/2017 per request. Sh e will continue therapy via home health. The patient requested for home health per request and was r eferred prior to discharge. DME was ordered prior to discharge. Vital signs prior to discharge, blo od pressure 167/77, temperature 97.9, pulse 95, respiration rate 18, O2 saturation 96%, weight 135 po unds and 5 feet 3 inches.
== END 2017-05-01 14:07 | disposition home health service (06) | DRG 561 ==
LOC: MADMS 14:21
PROVIDERS: ADMIT Family Medicine; ATTEND Family Medicine
DX: S82.201D Unspecified fracture of shaft of right tibia, subsequent encounter for closed fracture with routine healing (principal); I10 Essential (primary) hypertension; Z98.51 Tubal ligation status; F17.210 Nicotine dependence, cigarettes, uncomplicated; M79.1 Myalgia; R26.9 Unspecified abnormalities of gait and mobility; E78.5 Hyperlipidemia, unspecified; E03.9 Hypothyroidism, unspecified; F41.8 Other specified anxiety disorders; Z66 Do not resuscitate; K59.09 Other constipation
CPT/HCPCS: 90471; 90682; 90732; G0008; G0009; J1650; Q2036

== ENCOUNTER 2019-03-12 11:26 | Emergency (ER) | payer MEDICARE ==
[~2019-03-12 11:26] MED LIST: Iopamidol 370 76% 100 ML VIAL ONE
[2019-03-12] MEDS ORDERED: Ondansetron PF 4 MG/2 ML Vial ONE (12:56)
[2019-03-12] MEDS ORDERED: Sodium Chloride 0.9% 1,000 ML ONE (12:56)
[2019-03-12 13:00] LABS: #Lymphocytes 1.3 thou/uL (1.20-3.40); #Monocytes 0.7 thou/uL (0.11-0.59); #Neutrophils 9.8 thou/uL (1.40-6.50); %Basophils 0.3 % (0.0-1.0); %Eosinophils 0.4 % (0.0-10.0); %Monocytes 5.7 % (0.0-10.0); %Neutrophils 82.7 % (42.0-75.0); Hemoglobin 13.5 g/dL (12.0-16.0); Mean Corpuscular HGB CONC 31.4 g/dL (32.0-36.0); Mean Corpuscular Hemoglobin 29.3 pg (27.0-31.0); Mean Corpuscular Volume 93.4 fL (78.0-98.0); Mean Platelet Volume 6.9 fL (7.4-10.4); Platelet Count 296 thou/uL (130-400); RBC Distribution Width 12.8 % (11.5-14.5); White Blood Cell (WBC) Count 11.9 thou/uL (4.8-10.8)
[2019-03-12 13:20] LABS: ALT (SGPT) 19 U/L (8-55); AST (SGOT) 18 U/L (5-34); Albumin 3.9 g/dL (3.4-4.8); Alkaline Phosphatase 181 U/L (40-110); Anion Gap 14 mmol/L (10-20); BUN (Urea Nitrogen) 7 mg/dL (9.8-20.1); Bilirubin, Total 0.5 mg/dL (0.2-1.2); Calc. Creatinine Clearance 0 mL/min (70-130); Carbon Dioxide 23 mmol/L (23-31); Chloride 105 mmol/L (98-107); Estimated GFR-MDRD 81; Globulin 2.8 g/dL (2.4-3.5); Glucose 100 mg/dL (83-110); Lipase 17 U/L (8-78); Protein, Total 6.7 g/dL (6.0-8.3); Sodium 138 mmol/L (136-145)
--- NOTE | 2019-03-12 14:06 | CT ---
CT ABDOMEN AND PELVIS: 03/12/2019 HISTORY: Blood diarrhea. COMPARISON: None. TECHNIQUE: Axial CT imaging is obtained at 5 mm intervals from the lung bases through the pubic symphysis with i ntravenous contrast. Coronal and sagittal reformatted imaging obtained. FINDINGS: The imaged lung bases demonstrate no acute findings. Moderate sized hiatal hernia present. The liver, spleen and gallbladder are grossly unremarkable. No free intraperitoneal air is noted. The pancreas and bilateral adrenal glands are grossly unremarkable, as are bilateral kidneys. There is small volume free fluid in the pelvis. There is prominent wall thickening involving the colon, in the region of the splenic flexure and the descending colon, extending into the region of the sigmoid. There is significant associated pericolon ic fat stranding/inflammatory change, particularly in the region of the splenic flexure and proximal descending colon. No significant diverticular disease is seen in this region. There is no evidence fo r abscess formation. The appendix appears grossly unremarkable. The celiac axis, the superior mesenteric artery and the inferior mesenteric artery are patent. There is atherosclerotic calcification within the infrarenal abdominal aorta, as well as involving the mick rial branches of the pelvis. There is calcified plaque at the origin of the celiac axis. The portal vein and superior mesenteric vein appear patent. No lymphadenopathy is evident within the abdomen or pelvis. Review of the osseous structures demonstr ates multilevel spinal degenerative change with no acute osseous abnormality noted. IMPRESSION: Severe wall thickening and pericolonic inflammatory change involving the colon, from the level of the splenic flexure through the level of the sigmoid colon, most prominent in the splenic flexure and pr oximal descending colonic regions. These findings are consistent with a nonspecific severe colitis wh ich could be inflammatory, infectious or ischemic in nature. No free intraperitoneal air or evidence of bowel obstruction. The location of the most severe involvement of the colon is suspicious for isch emic colitis. POS: [facility]
[2019-03-12 15:01] LABS: Bilirubin Negative (Negative); Blood, Urine Moderate (Negative); Glucose, Urine (Dipstick) Negative (Negative); Leukocyte Small (Negative); Nitrite Negative (Negative); Protein, Urine (Dipstick) Negative (Neg-Trace); Urobilinogen 0.2 mg/dL (Less than 2)
[2019-03-12 15:02] LABS: Clarity Hazy (Clear)
[2019-03-12 15:05] LABS: Bacteria/HPF Rare-Few HPF (None Seen)
== END 2019-03-12 16:20 | disposition short-term general hospital (02) ==
LOC: MADERS 11:26
DX: K52.9 Noninfective gastroenteritis and colitis, unspecified (principal); D72.829 Elevated white blood cell count, unspecified; E78.5 Hyperlipidemia, unspecified; E03.9 Hypothyroidism, unspecified; F17.210 Nicotine dependence, cigarettes, uncomplicated; Z79.899 Other long term (current) drug therapy; Z79.82 Long term (current) use of aspirin
CPT/HCPCS: 36415; 74177; 80053; 81003; 81015; 82274; 83605; 83690; 85025; 96361; 96374; J2405; J7050; Q9967

== ENCOUNTER 2019-07-08 17:37 | Emergency (ER) | payer MEDICARE ==
[2019-07-08] MEDS ORDERED: Ketorolac Tromethamine 30 MG/ML VIAL ONE (18:05)
--- NOTE | 2019-07-08 18:30 | RAD ---
XR Humerus Rt 2 View STANDARD: 07/08/2019 5:53 PM CLINICAL INDICATION: Fall with right humerus pain COMPARISON: None. FINDINGS: Bones: There is a comminuted, 3 part, mildly impacted proximal right humerus fracture. There is diff use osteopenia. Joints: Joints space is preserved.. Soft Tissue: Normal.. IMPRESSION: Comminuted, 3 part, mildly impacted proximal right humerus fracture.
[2019-07-08] MEDS ORDERED: Morphine 4 MG/ML VIAL ONE (18:59)
--- NOTE | 2019-07-08 19:21 | RAD ---
THREE VIEWS RIGHT SHOULDER: 07/08/19 HISTORY: Injury after a fall. Pain right shoulder and humerus. COMPARISON: Views of the humerus also obtained on this date. FINDINGS: There is a comminuted and mildly impacted fracture involving the proximal right humerus with fracture involving the neck of the humerus as well as humeral head. There is mild separation of fracture frag ments. Diffuse osteopenia is noted. There is mild right acromioclavicular joint osteoarthritis. Corac oclavicular and acromioclavicular distances are within normal limits. The distal fracture fragment sl ightly displaced anteriorly with respect to the humeral head, and there is rotation of the humeral he ad dorsally. Degenerative changes are seen in the cervical spine. IMPRESSION: Comminuted and impacted fracture proximal right humerus with fracture involving the right humeral nec k and humeral head with rotation of the humeral head. POS: SHANIAC
== END 2019-07-08 20:20 | disposition home or self-care (01) ==
LOC: MADERS 17:37
DX: S42.231A 3-part fracture of surgical neck of right humerus, initial encounter for closed fracture (principal); E78.5 Hyperlipidemia, unspecified; E03.9 Hypothyroidism, unspecified; F17.210 Nicotine dependence, cigarettes, uncomplicated; Z79.899 Other long term (current) drug therapy; Z79.82 Long term (current) use of aspirin
CPT/HCPCS: 23600; 96374; 96375; J1885; J2270

== ENCOUNTER 2021-01-01 10:08 | Emergency (ER) | payer MEDICARE ==
[2021-01-01] MEDS ORDERED: Boostrix 0.5 ML (Tdap) VIAL ONE (10:56)
== END 2021-01-01 11:15 | disposition home or self-care (01) ==
LOC: MADERS 10:08
DX: T16.2XXA Foreign body in left ear, initial encounter (principal); E78.5 Hyperlipidemia, unspecified; E03.9 Hypothyroidism, unspecified; E05.00 Thyrotoxicosis with diffuse goiter without thyrotoxic crisis or storm; F17.210 Nicotine dependence, cigarettes, uncomplicated; Z79.899 Other long term (current) drug therapy
CPT/HCPCS: 69200; 90471; 90715

== ENCOUNTER 2022-10-03 09:40 | Emergency (ER) | payer OTHER, MEDICARE | END 2022-10-03 11:28 | disposition home or self-care (01) | LOC: MADERS 09:40 | DX: S92.501A Displaced unspecified fracture of right lesser toe(s), initial encounter for closed fracture (principal); E03.9 Hypothyroidism, unspecified; E78.5 Hyperlipidemia, unspecified; K21.9 Gastro-esophageal reflux disease without esophagitis; F17.210 Nicotine dependence, cigarettes, uncomplicated; W01.0XXA Fall on same level from slipping, tripping and stumbling without subsequent striking against object, initial encounter ==